=== PATIENT | female | born 1940 | race Caucasian/White ===

== ENCOUNTER 2019-07-04 17:28 | Observation (INO) ==
[2019-07-04] MEDS ORDERED: Naloxone 0.4 MG/ML INJ IVP PRN ×2 (21:59→22:02)
[2019-07-04] MEDS ORDERED: 0.9 % Sodium Chloride 1,000 ML IVC SCH (22:00)
[2019-07-04] MEDS ORDERED: Morphine Sulfate Oral CONC 10 MG/0.5 ML ORAL.SYG SL PRN ×2 (22:03)
[2019-07-04] MEDS ORDERED: Acetaminophen 325 MG TABLET PO PRN (22:04)
[2019-07-05] MEDS ORDERED: traZODone 50 MG TABLET PO ONE (01:07)
[2019-07-05 04:20] LABS: Basophils % 0.3 %; Hematocrit 28.6 % (35.3-44.9); Hemoglobin 9.4 g/dL (11.5-15.4); Immature Granulocytes % 0.5 % (0-4); Lymphocytes % 11.3 %; Mean Corpuscular HGB Conc 32.9 g/dL (31.6-35.5); Mean Corpuscular Hemoglobin 30.4 pg (28.0-33.3); Mean Corpuscular Volume 92.6 fL (83.0-100.0); Mean Platelet Volume 9.9 fL (9.4-12.4); Monocytes % 11.3 %; Neutrophils # 6.7 K/mcL (1.6-8.9); Platelet Count 219 K/mcL (140-400); Red Blood Count 3.09 M/mcL (3.82-4.97); Red Cell Distribution Width 13.2 % (11.5-14.5); Segmented Neutrophils % 76.6 %; White Blood Count 8.8 K/mcL (4.3-11.1)
[2019-07-05 04:40] LABS: Magnesium 1.9 mg/dL (1.6-2.6)
[2019-07-05 04:41] LABS: Troponin I < 0.03 ng/mL (< 0.04)
[2019-07-05 06:15] VITALS: BP 143/75
[2019-07-05] MEDS ORDERED: Pantoprazole 40 MG VIAL IVP SCH (06:49)
[2019-07-05] MEDS ORDERED: D5% in Water 1,000 ML IVC PRN (07:34)
[2019-07-05] MEDS ORDERED: Dextrose Gel 15 GM/37.5 ML TUBE PO PRN ×2 (07:34)
[2019-07-05] MEDS ORDERED: *HR* Dextrose 50 % in Water (Syg) 50 ML SYRINGE IVP PRN (07:34)
[2019-07-05 07:43] LABS: Alanine Aminotransferase 8 Units/L (7-52); Albumin 3.4 g/dL (3.5-5.7); Alkaline Phosphatase 43 Units/L (34-104); Aspartate Amino Transferase 15 Units/L (13-39); BUN/Creatinine Ratio 37 (6-26); Bilirubin,Total 0.5 mg/dL (0.3-1.0); Blood Urea Nitrogen 29 mg/dL (8-23); Calcium 8.4 mg/dL (8.6-10.3); Carbon Dioxide 26 mEq/L (23-29); Chloride 106 mEq/L (98-107); Glucose 135 mg/dL (70-105); Osmolality,Calculated 294 (280-300); Potassium 3.8 mEq/L (3.5-5.1); Sodium 138 mEq/L (136-145); Total Protein 5.9 g/dL (6.4-8.9); eGFR For African Americans > 60 (> 60); eGFR For Non-African Americans > 60 (> 60)
[2019-07-05 07:44] LABS: Albumin/Globulin Ratio 1.4 (1.1-2.2); Globulin 2.5 g/dL (2.4-3.5)
[2019-07-05] MEDS ORDERED: Divalproex (24 HR) 500 MG TABLET PO SCH (09:00)
[2019-07-05] MEDS ORDERED: Acetaminophen IV 1,000 MG/100 ML INFUS..BTL ONE (10:18)
[2019-07-05] MEDS ORDERED: *HR* FentaNYL (PF) 100 MCG/2 ML VIAL ONE ×2 (10:34→12:22)
[2019-07-05] MEDS ORDERED: Lidocaine -MPF 2% 2 ML VIAL ONE (10:35)
[2019-07-05] MEDS ORDERED: Ondansetron 4 MG/2 ML VIAL ONE (10:35)
[2019-07-05] MEDS ORDERED: *HR* Propofol 200 MG/20 ML VIAL IVP ONE (10:35)
[2019-07-05] MEDS ORDERED: Ethanol\\Acetic Acid\\Na Ace\\Ben 1,000 ML IRRIG.SOLN IR ONE (11:22)
[2019-07-05] MEDS ORDERED: *HR* FentaNYL (PF) 100 MCG/2 ML VIAL IVP PRN (11:32)
[2019-07-05] MEDS ORDERED: Ondansetron 4 MG/2 ML VIAL IVP ONE (11:32)
[2019-07-05] MEDS ORDERED: *HR* OxyCODONE Immed Rel 5 MG TABLET PO PRN (11:32)
[2019-07-05] MEDS ORDERED: *HR* PHENYLEPHRINE 1,000 MCG/10 ML SYRINGE IVP ONE (11:51)
[2019-07-05] MEDS ORDERED: Insulin LISPRO 300 UNITS/3 ML VIAL SQ SCH (12:00)
[2019-07-05] MEDS ORDERED: EPHEDrine 50 MG/ML VIAL ONE (12:25)
[2019-07-05] MEDS ORDERED: *HR* Heparin 5,000 UNIT/ML VIAL ONE (12:39)
[2019-07-05] MEDS ORDERED: Albumin Human 5% 12.5 GM/250 ML IV.SOLN ONE ×2 (12:42→12:46)
[2019-07-05] MEDS ORDERED: Heparin 1,000 UNITS/500 mL 500 ML ONE (12:50)
[2019-07-05] MEDS ORDERED: *HR* Midazolam HCl 2 MG/2 ML VIAL ONE (12:55)
[2019-07-05] MEDS ORDERED: *HR* Atropine Sulfate 1 MG/10 ML SYRINGE IV ONE (13:32)
[2019-07-05] MEDS ORDERED: *HR* EPINEPHrine 1 MG/10 ML SYRINGE IVP ONE (13:32)
[2019-07-05 14:31] LABS: ABG Base Excess -15 mEq/L (-2 to 3); ABG Chloride 104 mEq/L (98-107); ABG Glucose 380 mg/dL (60-95); ABG HCO3 15 mEq/L (21-27); ABG Ionized Calcium 1.12 mmol/L (1.15-1.35); ABG Oxygen Saturation 96 % (95-98); ABG PCO2 63 mmHg (35-45); ABG PH 6.99 pH Units (7.32-7.45); ABG PO2 120 mmHg (85-104); ABG TCO2 17 mEq/L (20-26)
[2019-07-05] MEDS ORDERED: *HR* Heparin 5,000 UNIT/ML VIAL SQ SCH (22:01)
== END 2019-07-05 13:33 | disposition expired ==
LOC: 3NENU → SUATTDRO 20:23 → 3ANU 07-05 02:42 → ICNU 07-05 13:31
PROVIDERS: ADMIT Internal Medicine; ATTEND Internal Medicine